=== PATIENT | male | born 1970 | race Caucasian/White ===

== ENCOUNTER 2020-08-02 10:43 | Inpatient (IN) | payer OTHER ==
[~2020-08-02] VITALS: Ht 170.2 cm; Wt 75.1 kg
[~2020-08-02 10:43] MED LIST: DEPO-TESTO200 MG/1 M IM
[2020-08-02 10:50] VITALS: BP 140/85
[2020-08-02 11:33] LABS: HEMATOCRIT 28.2 % (42.0-52.0); HEMOGLOBIN 9.9 gm/dL (14.0-18.0); MCH 37.4 pg (26.0-34.0); MCHC 35.1 g/dL (28.0-37.0); MCV 106.7 fL (80.0-100.0); MPV 8.1 fl. (7.2-11.1); NUCLEATED RBCS 0 /100WBC; RBC 2.64 mil/uL (4.50-6.00); RDW-CV 15.3 % (10.5-14.5)
[2020-08-02 11:35] LABS: PLATELET COUNT* 16 thou/uL (150-400); WBC 0.7 thou/uL (4.0-11.0)
[2020-08-02 11:42] LABS: CALCIUM 8.3 mg/dL (8.5-10.1); CREATININE 1.1 mg/dL (0.6-1.3); POTASSIUM 4.2 mmol/L (3.5-5.1)
[2020-08-02 11:47] LABS: TOTAL BILIRUBIN 0.6 mg/dL (<0.1-1.0); TOTAL PROTEIN 7.1 g/dL (6.4-8.2)
[2020-08-02 12:01] LABS: URINE BILIRUBIN NEGATIVE (Negative); URINE BLOOD NEGATIVE (Negative); URINE CLARITY CLEAR; URINE COLOR YELLOW; URINE GLUCOSE-RANDOM NEGATIVE (Negative); URINE KETONES NEGATIVE (Negative); URINE LEUKOCYTES-REFLEX NEGATIVE (Negative); URINE NITRITE-REFLEX NEGATIVE (Negative); URINE PROTEIN NEGATIVE (Negative); URINE SPECIFIC GRAVITY 1.025 (1.005-1.030); URINE UROBILINOGEN 0.2 E.U./dl (0.2-1.0)
[2020-08-02 12:11] LABS: AMP/METHAMP Negative (Negative); BARBITURATES Negative (Negative); BENZODIAZEPINES POSITIVE (Negative); COCAINE Negative (Negative); METHADONE Negative (Negative); OPIATES Negative (Negative); PCP Negative (Negative); THC Negative (Negative)
[2020-08-02 12:25] LABS: ABSOLUTE LYMPHOCYTES 0.5 thou/uL (0.8-5.3); ABSOLUTE NEUTROPHILS 0.2 thou/uL (1.6-8.1); PLATELET ESTIMATE DECREASED; POLYCHROMASIA 2+
--- NOTE | 2020-08-02 14:15 | EKG ---
[place] [address] ELECTROCARDIOGRAM REPORT Name: DOMINIK WU Room: [place] [address] ADM IN [facility]#: [id number] Admission: 08/02/20 Attend Phys: Benedict Jernigan, Discharge: Date of : 68 Date of Service: 08/02/20 1112 Report #: [id number] THIS REPORT FOR: //name// [facility] ED Test Date: 2020-08-02 Test Time: 11:12:23 Pat Name: DOMINIK WU Department: Room: [facility] Gender: M [employer]: SEDA : 1970 Requested By: Varun Scott Order Number: [id number] MD: Santi Dent Measurements Intervals [place] Rate: 79 P: 55 OK: 155 QRS: 26 QRSD: 79 T: 4 QT: 340 QTc: 390 Interpretive Statements Sinus rhythm Baseline wander in lead(s) I,III,aVL No previous ECG available for comparison Electronically Signed On 08-02-2020 14:15:36 CDT by Santi Dent [email or web address] <ELECTRONICALLY SIGNED> By: Santi Dent MD, [facility] 08/02/20 1415 1112 1112 Santi Dent MD, [facility] /EPI
[2020-08-02 16:00] VITALS: BP 115/75; BP 135/83
[2020-08-02 20:00] VITALS: BP 132/74
[2020-08-03 00:28] VITALS: BP 113/67
[2020-08-03 05:02] VITALS: BP 111/66
[2020-08-03 05:04] LABS: CALCIUM 8.7 mg/dL (8.5-10.1); CREATININE 1.1 mg/dL (0.6-1.3); POTASSIUM 4.2 mmol/L (3.5-5.1)
[2020-08-03 05:05] LABS: BASOPHILS 0.3 %; EOSINOPHILS 2.1 %; HEMATOCRIT 27.9 % (42.0-52.0); HEMOGLOBIN 9.8 gm/dL (14.0-18.0); LYMPHOCYTES 78.2 %; MCH 37.3 pg (26.0-34.0); MCHC 35.1 g/dL (28.0-37.0); MCV 106.3 fL (80.0-100.0); MONOCYTES 3.7 %; MPV 8.5 fl. (7.2-11.1); NUCLEATED RBCS 0 /100WBC; POLYS 15.7 %; RBC 2.62 mil/uL (4.50-6.00); RDW-CV 15.3 % (10.5-14.5)
[2020-08-03 05:12] LABS: ABSOLUTE LYMPHOCYTES 0.9 thou/uL (0.8-5.3); ABSOLUTE NEUTROPHILS 0.2 thou/uL (1.6-8.1)
[2020-08-03 05:13] LABS: WBC 1.2 thou/uL (4.0-11.0)
[2020-08-03 05:15] LABS: PLATELET COUNT* 16 thou/uL (150-400)
[2020-08-03 07:30] VITALS: BP 115/69
[2020-08-03 11:30] VITALS: BP 118/70
--- NOTE | 2020-08-03 17:20 | NUR ---
CM INFORMED THAT DR LUBIN INITIATED PT TX TO [facility]. PT AND SPOUSE IN AGREEMENT WITH THE PLAN. CM SPOKE TO TX TEAM AND THEY INFORM OF ACEPTING PHYSICIAN DR. BROWER. CM ARRANGED TRANSPORT WITH [facility] NON-EMERGENT. RN GIVEN NUMBER TO CALL REPORT. CM WILL REMAIN AVAILABLE TO ASSIST AND FOLLOW NEEDED.
== END 2020-08-03 16:30 | disposition short-term general hospital (02) | DRG 101 ==
LOC: M.ERS 10:43 → M.TBA-ER 13:20 → M.2W 16:00
PROVIDERS: Emergency Medicine Emergency Medical Services; ADMIT Internal Medicine; ATTEND Internal Medicine
DX: R56.9 Unspecified convulsions (principal); C92.00 Acute myeloblastic leukemia, not having achieved remission; D61.818 Other pancytopenia; Z20.822 Contact with and (suspected) exposure to COVID-19; Z85.47 Personal history of malignant neoplasm of testis; Z72.89 Other problems related to lifestyle